=== PATIENT | female | born 1950 | race Two or more races ===

== ENCOUNTER 2025-08-20 18:59 | Emergency (ER) | payer MEDICARE, SELFPAY ==
[2025-08-20 19:03] VITALS: PULSE 77
--- NOTE | 2025-08-20 19:03 | XR_ITS ---
Examination: CT brain head without contrast. 2-D sagittal coronal reconstructions Date and time of exam: August 20, 2025, 1915 hours INDICATIONS: Stroke alert, onset left-sided head pain today, comparison September 04, 2023 CTDI: vol (mGy): 48.4 DLP: (mGycm): 998 Technique: Multiple CT axial sections of the brain have been obtained, 5 mm slice thickness. Contrast has not been administered. 2-D sagittal, coronal reconstructions have been obtained Low dose protocols were performed. One or more of the following dose reduction techniques were used; automated exposure control, adjustment of the mA and/or KV according to patient size, use of iterative reconstruction technique. Findings: 24 mm acute hemorrhage in the left occipital lobe with surrounding edema The ventricles are not enlarged Fourth ventricle is midline Cranial vault intact No midline shift of the ventricles IMPRESSION: 24 mm acute hemorrhage left occipital lobe
--- NOTE | 2025-08-20 19:03 | XR_ITS ---
Examination: CTA carotids with intravenous contrast CTA brain, head with intravenous contrast. 2-D sagittal, coronal reconstructions. 3-D reconstructions. Exam date and time: August 20, 2025, 192 hours INDICATIONS: Stroke alert, onset left-sided body weakness head pain today CTDI: vol (mGy) 14.5 DLP: (mGycm) 399 Technique: Multiple CTA axial brain, head carotid images post intravenous contrast injection 75 cc, [id number]. 2-D sagittal, coronal reconstructions. 3-D reconstructions, 3-D post processing including vascular maximum intensity projection images. Low dose protocols were performed. One or more of the following dose reduction techniques were used; automated exposure control, adjustment of the mA and/or KV according to patient size, use of iterative reconstruction technique. Findings: Multiple thyroid nodules 50% stenosis proximal left common carotid artery 60% stenosis right carotid bifurcation origin right internal carotid artery 60% stenosis left carotid bifurcation origin left internal carotid artery Dominant right vertebral artery in the neck Heavy calcification origin left vertebral artery in the neck Intracranial vertebral arteries basilar artery posterior cerebral branches fill with no large vessel occlusions Moderate calcification juxtasellar internal carotid arteries No large vessel occlusions middle cerebral or anterior cerebral arteries Please see the CT brain report IMPRESSION: 50% stenosis proximal left common carotid artery 60% stenosis right carotid bifurcation origin right internal carotid artery 60% stenosis left carotid bifurcation origin left internal carotid artery Heavy calcification origin left vertebral artery, consider carotid vertebral Doppler sonography follow-up to assess for retrograde flow in the left vertebral artery No cerebral large vessel arterial occlusions
--- NOTE | 2025-08-20 19:03 | EKG_ITS ---
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
--- NOTE | 2025-08-20 19:03 | XR_ITS ---
EXAMINATION: AP chest single view TECHNIQUE: Sitting portable AP chest single view Date and time: August 20, 2025, 193 hours COMPARISON: September 04, 2023 INDICATIONS: Stroke alert FINDINGS: Normal heart size No aspiration pneumonia. Prominent osteopenia IMPRESSION: No aspiration pneumonia
--- NOTE | 2025-08-20 19:06 | PD.EDNEURO ---
Neuro Symptoms Deficit-RME/HPI General Chief Complaint: Neuro Symptoms/Deficit Stated Complaint: STROKE Time Seen by Provider: 08/20/25 19:02 Source: patient and EMS Arrival date/time: 08/20/25 18:59 Mode of arrival: EMS RME / HPI RME / HPI Narrative: DR. DC MAIN ED EVALUATION: 75 y/o female with Hx of HTN, HLD, and Type II DM BIBA from home presents to ED c/o severe left-sided globular RODRIGUEZ, weakness and feeling mildly unsteady, similar to that of a prior hemorrhagic stroke approximately 3 months ago. LKWT was approximately 9 PM last night. Family noticed an unsteady gait and patient c/o mild dizziness. Also reports belly pain radiating to the back. Denies any allergies to medications. No other complaints. In speaking to the patient's granddaughter at bedside, states that the patient had a head bleed in March of this year, was taken to [facility] at the time. Patient does not take any aspirin, or any blood thinners. Has a history of hypertension diabetes hyperlipidemia and anemia. No drugs alcohol or smoking. She quit smoking many months ago. Onset (ago): hour(s) Related Data Home Medications ?Medication ?Instructions ?Recorded ?Confirmed ferrous sulfate 325 mg (65 mg 325 mg PO QDAY 08/11/22 08/11/22 iron) tablet lisinopril 10 mg tablet 10 mg PO QDAY 08/11/22 08/11/22 metformin 1,000 mg tablet 1,000 mg PO BIDWMEAL 08/11/22 08/11/22 oxybutynin chloride 5 mg tablet 5 mg PO BID 08/11/22 08/11/22 pioglitazone 15 mg tablet 15 mg PO QDAY 08/11/22 08/11/22 pravastatin 40 mg tablet 40 mg PO QDAY 08/11/22 08/11/22 tramadol 50 mg tablet 50 mg PO QDAY PRN Pain 08/11/22 08/11/22 Allergies Allergy/AdvReac Type Severity Reaction Status Date / Time cat dander Allergy Verified 08/13/22 16:31 Review of Systems Review of Systems Systems Reviewed: All systems reviewed, normal except as documented Past Medical History Past Medical History CARDIAC: Positive Hypertension MUSCULOSKELETAL: Positive Musculoskeletal Disorders (left knee replacement,) ENDOCRINE: Positive Diabetes Mellitus Type 2 OTHER HISTORY: Positive Blood Transfusions Family History FAMILY HISTORY: Positive Family Gastrointestinal Problems (Gastritis) ED Exam Narrative Physical exam: GEN. APPEARANCE: The patient is alert awake oriented uncomfortable, Patient has good eye contact. Patient is cooperative. VITALS: All vitals were reviewed and the pulse ox is 99% on room air which is normal according to my interpretation. HEENT: Normocephalic, atraumatic. Pupils are equal and reactive. Oral mucosa is moist. Patent Nares NECK: Supple, nontender, no thyromegaly, no meningismus, no JVD CHEST: Symmetrical, atraumatic, and with equal expansion , Nontender on palpation no deformity and no crepitus. CARDIOVASCULAR: Heart regular rhythm no arrhythmias appreciated LUNGS: Clear to auscultation bilaterally with symmetrical chest rise. No laboring tachypnea or wheezing. No intercostal subcostal retraction. No rales and no rhonchi. ABDOMEN: Soft, flat, tender to palpation of epigastrium, no guarding or rebound tenderness. There are no abnormal masses palpated. Active and normal bowel sounds. EXTREMITIES: Nontender. No edema. No cyanosis. Patient is able to move all 4 extremities well, with full ROM and good CSM. SKIN: Warm and dry, no jaundice or rashes noted. NEURO: Patient is strong in all 4 extremities, cranial nerves grossly intact, sensation intact, unsteady gait PSYCHIATRIC: Patient is in normal mood and affect. Course Quality Measures Suspected type of Stroke: Hemmorrhagic Last known well (date): 08/19/25 Last known well (time): 21:00 Tenecteplase given: within 60 min of arrival stroke Orders Category Date Time Status Bedside Blood Glucose NOW Care 08/20/25 19:[address] Screening NOW Care 08/20/25 19:04 Completed Coach Mechanic NOW Care 08/20/25 19:03 Completed Continuous Pulse Oximetry NOW Care 08/20/25 19:03 Completed EKG (ED ONLY) *Do not use* NOW Care 08/20/25 19:03 Completed Chandler [Urinary Catheter] QS Care 08/20/25 20:37 Completed In and Out Catheter NEEDED Care 08/20/25 19:03 Completed Insert IV NOW Care 08/20/25 19:03 Completed Miscellaneous Nursing Order NOW Care 08/20/25 19:27 Completed Miscellaneous Nursing Order NOW Care 08/20/25 19:30 Completed NIH Stroke Scale now Care 08/20/25 19:03 Completed NPO NOW Care 08/20/25 19:03 Completed Neuro Check Q1H Care 08/20/25 19:30 Completed Neuro Check Q1HR Care 08/20/25 19:03 Completed Nurse Swallow Screen x1 Care 08/20/25 19:03 Completed Consult to Neurology / Tele-Neurology Routine Cons 08/20/25 19:03 Active Referral - Agricultural Scientist Stat Cons 08/20/25 19:[address] angio chest abdomen pelvis Stat Exams 08/20/25 19:[address] angio stroke protocol Stat Exams 08/20/25 19:[address] stroke protocol Stat Exams 08/20/25 19:03 Completed EKG (ED Only) Stat Exams 08/20/25 19:03 Draft XR chest 1V portable Stat Exams 08/20/25 19:03 Completed CBC Stat Lab 08/20/25 19:09 Completed Comprehensive Metabolic Panel Stat Lab 08/20/25 19:09 Completed Drug Screen,Urine Stat Lab 08/20/25 20:10 Completed Magnesium Stat Lab 08/20/25 19:09 Completed Partial Thromboplastin Time Stat Lab 08/20/25 19:09 Completed Prothrombin Time with INR Stat Lab 08/20/25 19:09 Completed Troponin I Stat Lab 08/20/25 19:09 Completed Urinalysis, C/S if Indicated Stat Lab 08/20/25 20:10 Completed Labetalol IV [Trandate IV] Med 08/20/25 19:02 Discontinued 10 mg IVP Q15M PRN Morphine* Inj Med 08/20/25 20:57 Discontinued 2 mg IVP STAT STA Morphine* Inj Med 08/20/25 19:40 Discontinued 2 mg IVP X1 ONE Nicardipine/Ns 20Mg Ivpb [Cardene Ivpb] Med 08/20/25 19:29 Discontinued 20 mg in 200 ml IV 5 mg/hr Ondansetron Inj [Zofran Inj] Med 08/20/25 19:02 Discontinued 4 mg IVP Q4HR PRN Ondansetron Inj [Zofran Inj] Med 08/20/25 20:57 Discontinued 4 mg IVP X1 ONE Tranexamic Acid 1,000 mg Ivpb [Tranexamic Acid Ivpb] Med 08/20/25 19:27 Discontinued 1,000 mg in 100 ml IV PRNMRX1 hydrALAZINE INJ [Apresoline Inj] Med 08/20/25 20:57 Discontinued 10 mg IVP X1 ONE Oxygen Delivery NOW RT 08/20/25 19:03 Completed Vital Signs Vital signs: Vital Signs Pulse Rate 77 08/20/25 19:03 Neuro Symptoms / Deficit MDM Narrative MDM Narrative:: Scribe Attestation: ISarah, am scribing for and in the presence of Dr. Dc. Provider Notation: Although this document has been carefully reviewed, there may still be some phonetic and other typographical errors. These errors are purely grammatical due to imperfections in the software program and should not be construed in any way to compromise the substance of the patient's medical care during this visit. Patient is a 75-year-old female with medical history notable for hypertension, hyperlipidemia, diabetes, anemia to the emergency department with a severe headache and unsteady gait since last night. Vital signs and exam as listed. Patient was activated as a stroke alert, also ordered CT angio of the chest abdomen pelvis given patient with chest pain that radiated to her back as well. Received a call from radiologist stating that patient has a 24 mm acute left occipital hemorrhage. I ordered TXA, head of bed about 45 degrees, also ordered nicardipine drip, with systolic blood pressure goal of 140. Patient without any aspirin or any blood thinners. Discussed case with [facility] neurosurgeon Dr. Rice, reviewed images, recommends we transfer the patient to a facility that has angiogram capabilities. Discussed case with [facility], accepts patient for admission, agrees with management. Updated patient and her granddaughter at bedside. In agreement with treatment plan and transfer. Patient data External records reviewed:: [facility] previous records (Reviewed pro ED records from 09/04/23. Patient was seen for Vasovagal syncope.) and EMS form Clinical information provided by:: patient and EMS Social determinants that could affect healthcare access:: housing Patient has the following chronic illnesses:: Hypertension, Diabetes Mellitus Type 2, HLD How is presenting disease/condition affected by chronic disease/condition?: exacerbated by Evaluation data The following diagnostics were reviewed and interpreted by me:: lab results, radiology exam(s) and EKG tracing(s) (EKG typicals: EKG done at 19:49, 67 bpm, normal intervals, non-specific T-wave changes, not a cardiac alert. - Interpreted by Dr. Tavia Dc.) Lab and/or radiology exams considered but not ordered:: None Interpretation Summary: RADIOLOGY Chest X-Ray: Pending official radiology report. Head/Brain CT: Findings: 24 mm acute hemorrhage in the left occipital lobe with surrounding edema The ventricles are not enlarged Fourth ventricle is midline Cranial vault intact No midline shift of the ventricles IMPRESSION: 24 mm acute hemorrhage left occipital lobe Chest/Abdomen/Pelvis CTA: Pending official radiology report. Head/Neck CTA: Pending official radiology report. Medications / Prescriptions Medications or Prescriptions considered but not ordered:: None Medication administrations:: Medication Administration History Discontinued Medications Hydralazine HCl (Hydralazine Inj 20 Mg/Ml Vial) 10 mg IVP X1 ONE Stop: 08/20/25 20:58 Last Admin: 08/20/25 21:01 Dose: 10 mg Documented By: CINDY Tranexamic Acid (Tranexamic Acid Ivpb) 1,000 mg in 100 mls @ 200 mls/hr IV PRNMRX1 PRN PRN Reason: BLEEDING Last Infusion: 08/20/25 20:18 Dose: Infused Documented By: Admin: 08/20/25 19:40 Dose: 200 mls/hr Documented By: CINDY Nicardipine/Sodium Chloride (Cardene Ivpb) 20 mg in 200 mls @ 50 mls/hr IV .Q4H PRN; Protocol PRN Reason: PER PROTOCOL Stop: 09/19/25 19:28 Last Admin: 08/20/25 20:55 Dose: 15 mg/hr, 150 mls/hr Documented By: [email or web address] Titration: 08/20/25 20:54 Dose: Infused Documented By: [email or web address] Titration: 08/20/25 20:50 Dose: 15 mg/hr, 150 mls/hr Documented By: [email or web address] Titration: 08/20/25 20:45 Dose: 15 mg/hr, 150 mls/hr Documented By: [email or web address] Titration: 08/20/25 20:40 Dose: 15 mg/hr, 150 mls/hr Documented By: [email or web address] Titration: 08/20/25 20:35 Dose: 15 mg/hr, 150 mls/hr Documented By: [email or web address] Titration: 08/20/25 20:30 Dose: 15 mg/hr, 150 mls/hr Documented By: [email or web address] Titration: 08/20/25 20:25 Dose: 15 mg/hr, 150 mls/hr Documented By: [email or web address] Titration: 08/20/25 20:20 Dose: 15 mg/hr, 150 mls/hr Documented By: [email or web address] Titration: 08/20/25 20:15 Dose: 15 mg/hr, 150 mls/hr Documented By: [email or web address] Titration: 08/20/25 20:10 Dose: 12.5 mg/hr, 125 mls/hr Documented By: [email or web address] Titration: 08/20/25 20:05 Dose: 10 mg/hr, 100 mls/hr Documented By: [email or web address] Titration: 08/20/25 20:00 Dose: 7.5 mg/hr, 75 mls/hr Documented By: [email or web address] Admin: 08/20/25 19:55 Dose: 5 mg/hr, 50 mls/hr Documented By: [email or web address] Labetalol HCl (Labetalol Inj 5 Mg/Ml Vial 20 Ml) 10 mg IVP Q15M PRN PRN Reason: HYPER Morphine Sulfate (Morphine Sulf Inj 4 Mg/Ml Vial) 2 mg IVP X1 ONE Stop: 08/20/25 19:41 Last Admin: 08/20/25 20:12 Dose: 2 mg Documented By: [email or web address] Morphine Sulfate (Morphine Sulf Inj 4 Mg/Ml Vial) 2 mg IVP STAT STA Stop: 08/20/25 20:58 Last Admin: 08/20/25 21:03 Dose: 2 mg Documented By: CINDY Ondansetron HCl (Ondansetron Inj 2 Mg/Ml Inj 2 Ml) 4 mg IVP Q4HR PRN PRN Reason: NAUSEA OR VOMITING Stop: 09/19/25 19:01 Ondansetron HCl (Ondansetron Inj 2 Mg/Ml Inj 2 Ml) 4 mg IVP X1 ONE; Protocol Stop: 08/20/25 20:58 Last Admin: 08/20/25 21:03 Dose: 4 mg Documented By: CINDY See above if any Consultations Consultation(s) initiated? (list below): Yes Consultation #1 (Physician, Specialty, Details): Dr. Rcie at [facility] made aware of the patient?s HPI, PMHx, lab and/or radiology results. Discussed treatment plan. Will return call for possible transfer. Time: 19:33 Consultation #2 (Physician, Specialty, Details): After review of head/brain CT, Dr. Rice declines patient for transfer, recommends angiogram or transfer to a neuro-interventional facility. Time: 19:44 Consultation #3 (Physician, Specialty, Details): [facility] made aware of the patient?s HPI, PMHx, lab and/or radiology results. Discussed treatment plan. Will accept patient for transfer, ED to ED. Time: 19:59 Diagnosis Neuro Differential Diagnosis: delirium, subarachnoid hemorrhage, peripheral neuropathy, cerebrovascular accident and transient cerebral ischemia Most likely diagnosis given after review of the tests above:: Intracranial hemorrhage, Anemia Admission Indicated Admission indicated?: not indicated Explain why admission is indicated or not indicated:: Patient pending transfer to tertiary facility with neurosurgical capabilities. Admission Request Was there a request for admission?: No Disposition Plan Disposition Plan: Transfer Critical Care Time Critical Care Time Critical Care Time: Yes Total Critical Care Time (min.): 60 Attestation: The high probability of sudden, clinically significant deterioration in the patient?s condition required the highest level of my preparedness to intervene urgently. The services I provided to this patient were to treat and/or prevent clinically significant deterioration. Services included the following: chart data review, reviewing nursing notes and/or old charts, documentation time, health and wellness sales consultant collaboration regarding findings and treatment options, medication orders and management, direct patient care, vital sign assessments and ordering, interpreting and reviewing diagnostic studies and lab tests. Aggregate critical care time includes only time during which I was engaged in work directly related to the patient?s care, as described above, whether at bedside or elsewhere in the Emergency Department. It did not include time spent performing other reported procedures or the services of residents, students, nurses or physician assistants. Discharge Plan Plan Patient Disposition: [facility] Facility Pt Being Transferred to: [facility] Prescriptions/Referrals Prescriptions/Med Rec: No Action pioglitazone 15 mg Tablet 15 mg PO QDAY pravastatin 40 mg Tablet 40 mg PO QDAY tramadol 50 mg Tablet 50 mg PO QDAY PRN (Reason: Pain) ferrous sulfate 325 mg (65 mg iron) Tablet 325 mg PO QDAY metformin 1,000 mg Tablet 1,000 mg PO BIDWMEAL lisinopril 10 mg Tablet 10 mg PO QDAY oxybutynin chloride 5 mg Tablet 5 mg PO BID Problem List Clinical Impression: Anemia, Intracranial hemorrhage Patient/Caregiver Discharge Instructions Print Language: Latvian Stand Alone Forms: Gwen Award Info., Patient Portal Info Letter
[2025-08-20 19:20] VITALS: BMI 23.7
[2025-08-20 19:27] LABS: Basophils # (Auto) 0.0 Thou/mm3 (0.0-0.2); Basophils % (Auto) 1 % (0-2.5); Eosinophils # (Auto) 0.1 Thou/mm3 (0.0-0.5); Eosinophils % (Auto) 1 % (0-10); Hematocrit 28.7 % (36.0-46.0); Hemoglobin 9.6 g/dL (12.0-16.0); Immature Granulocytes Auto 0.01 Thou/mm3 (0.00-0.00); Lymphocytes # (Auto) 2.2 Thou/mm3 (1.0-4.8); Lymphocytes % (Auto) 32 % (10-50); Mean Corpuscular HGB Conc 33.4 g/dl (31.0-37.0); Mean Corpuscular Hemoglobin 29.0 pg (25.0-35.0); Mean Corpuscular Volume 87 fL (80-100); Monocytes # (Auto) 0.5 Thou/mm3 (0.0-0.8); Monocytes % (Auto) 7 % (0-12); Neutrophils # (Auto) 4.1 Thou/mm3 (1.8-7.7); Neutrophils % (Auto) 59 % (37-80); Nucleated Red Blood Cell # 0.00 Thou/mm3 (0.00-0.00); Nucleated Red Blood Cell % 0 /100 WBC (0); Platelet Count 371 Thou/mm3 (140-440); RDW Standard Deviation 45.5 fL (36.4-46.3); Red Blood Count 3.31 Miln/mm3 (4.00-5.20); White Blood Count 7.0 Thou/mm3 (3.6-11.0)
--- NOTE | 2025-08-20 19:38 | PC.NURSE ---
STAT transfer to [facility] REVIEWING by MD Rice - will try reach if Pt s accepted Clinicals sent
[2025-08-20] MEDS: TRANEXAMIC ACID 1,000 MG IVPB 1,000 MG/100 ML BAG 200 MG IV (19:40)
--- NOTE | 2025-08-20 19:40 | PC.NURSE ---
pt at bedside talking to tele nuero specialist raul Hung MD on tele nuero cart
[2025-08-20 19:44] VITALS: BP 201/59; PULSE 69; RESP 18; TEMP 37.1; O2SAT 99
[2025-08-20 19:48] LABS: Alanine Aminotransferase 9 U/L (10-49); Albumin, Serum 4.8 gm/dL (3.4-4.8); Albumin/Globulin Ratio 2.0 (1.2-2.2); Alkaline Phosphatase 82 U/L (46-116); Anion Gap 14 (7-16); Aspartate Amino Transferase 15 U/L (0-34); BUN/Creatinine Ratio 10 Ratio (12-20); Bilirubin,Total 0.4 mg/dL (0.3-1.2); Blood Urea Nitrogen 11 mg/dL (9-23); Calcium 9.5 mg/dL (8.3-10.6); Calcium (Corrected) 9.5 mg/dL (8.5-10.1); Carbon Dioxide 21.4 mMol/L (20.0-31.0); Chloride 94 mMol/L (98-107); Creatinine (Component) 1.1 mg/dL (0.6-1.3); Estimated Creatinine Clearance 42.0 mL/min (>60); Globulin 2.4 gm/dL (2.3-3.5); Glucose 126 mg/dL (74-106); INR 0.9 (0.9-1.3); Magnesium 1.9 mg/dL (1.6-2.6); Osmolality,Calculated 260 (275-295); Partial Thromboplastin Time 27.6 Seconds (22.0-36.0); Potassium 4.2 mMol/L (3.4-5.1); Prothrombin Time 9.8 Seconds (9.0-12.2); Sodium 129 mMol/L (136-145); Total Protein 7.2 gm/dL (5.7-8.2); Troponin I < 0.020 ng/mL (0.0-0.045); eGFR 53 See Note
[2025-08-20 19:55] VITALS: BP 222/79; PULSE 69
[2025-08-20] MEDS: NICARDIPINE/NS 20MG IVPB 20 MG/200 ML BAG 50 MG IV (19:55)
--- NOTE | 2025-08-20 20:01 | PC.NURSE ---
[facility] declined due to pt needing angiogram, will fax over clinicals to [facility]. MD Pollard o the phone with [facility] for EMTALA questions images pushed over, labs faxed as well as clinicals
--- NOTE | 2025-08-20 20:09 | PC.NURSE ---
2008, ACCEPTED TO [facility] BY , ED TO ED, REPORT [id number], SPOKE TO ANTON
[2025-08-20] MEDS: MORPHINE SULF INJ 4 MG/ML VIAL 2 MG IVP ×2 (20:12→21:03)
--- NOTE | 2025-08-20 20:25 | PD.TNEURO ---
Tele Neuro Consultation Consultation Date 08/20/25 Most Recent Vital Signs Last Vital Signs Temp 98.7 F 08/20/25 19:44 Pulse 69 08/20/25 19:55 Resp 18 08/20/25 19:44 BP 222/79 H 08/20/25 19:55 Pulse Ox 99 08/20/25 19:44 O2 Del Method Room Air 08/20/25 19:44 Laboratory-Coagulation Panel PT 9.8 Seconds (9.0-12.2) 08/20/25 19:09 INR 0.9 (0.9-1.3) 08/20/25 19:09 APTT 27.6 Seconds (22.0-36.0) 08/20/25 19:09 Consultation Narrative [facility] Tele[facility]rology [facility] Patient Name:???Makenna Ho Date of :???1950 Identification Number:??? Date of Service:???08/20/2025 19:31:35 Diagnosis:?I61.1 - Intracerebral hemorrhage in hemisphere, cortical Impression: Ms Bynum is a 75 year old woman with a new left occipital hemorrhagic stroke causing right visual field loss and it is likely in a different location from previous given the location of prior deficits are left hemiparesis/sensory loss. She is a former smoker so neoplasm etiology is possible, the cortical location raises concerns for amyloid angiopathy, vascular malformation, mycotic etiology. I recommend BP goal <140/90 with cardene, neurosurgical evaluation for etiology/monitoring, MRI brain with and without contrast. Recommendation: Diagnostic Studies: ?Repeat CT head in first 8-12hrs Laboratory Studies:? INR/PT ? aPTT? CBC Medications:? Hold?antiplatelet?therapy/NSAIDS/Anticoagulation Nursing Recommendations: ? Telemetry, IV Fluids?Avoid dextrose containing fluids, Maintain euglycemia ? Head of bed 30 degrees ? Neuro checks q1-2?hrs?during ICU stay ? keep BP less than 140/90's with goal of 130/80s Consultations: ? Need Neurosurgery consultation?STAT DVT Prophylaxis: ? SCDs Disposition: ? Neurology will Follow Metrics: Last Known Well: Unknown Dispatch Time: 08/20/2025 19:31:35 Arrival Time: 08/20/2025 19:00:00 Initial Response Time: 08/20/2025 19:44:08Symptoms: confused with bad headache and weakness worse than baseline. Initial patient interaction: 08/20/2025 19:51:00 NIHSS Assessment Completed: 08/20/2025 19:56:20Patient is not a candidate for Thrombolytic. Thrombolytic Medical Decision: 08/20/2025 19:56:21Patient was not deemed candidate for Thrombolytic because of following reasons: Current intracranial hemorrhage . CT Head: I personally reviewed all the CT images that were available to me and it showed: left occipital hemorrhage Primary Provider Notified of Diagnostic Impression and Management Plan on: 08/20/2025 20:06:45 History of Present Illness:Patient is a 75 year old Female. Patient was brought by EMS for symptoms of confused with bad headache and weakness worse than baseline. 75 year old woman awoke today confused and not acting her baseline per family so she was hollis to the ED by EMS since her headache was severe and concerning for another stroke. She had a hemorrhagic stroke in March and was seen at another hospital. She is not taking anti thrombotic medications. No trauma history. She complains that her left side feels weaker than baseline. Past Medical History: ?Hypertension ?Diabetes Mellitus ?Hyperlipidemia ?Stroke Medications: No Anticoagulant use? No Antiplatelet use Reviewed EMR for current medications Allergies:? Reviewed Social History: Smoking: Former Drug Use: No Family History: There is no family history of premature cerebrovascular disease pertinent to this consultation ROS : 14 Points Review of Systems was performed and was negative except mentioned in HPI. Past Surgical History: There Is No Surgical History Contributory To Today?s Visit Examination: BP(201/59),?Pulse(70),?Blood Glucose(150) 1A: Level of Consciousness - Alert; keenly responsive?+ 0 1B: Ask Month and Age - Could Not Answer Either Question Correctly?+ 2 1C: Blink Eyes & Squeeze Hands - Performs Both Tasks?+ 0 2: Test Horizontal Extraocular Movements - Normal?+ 0 3: Test Visual [place] - Complete Hemianopia?+ 2 4: Test Facial Palsy (Use Grimace if Obtunded) - Minor paralysis (flat nasolabial fold, smile asymmetry)?+ 1 5A: Test Left Arm Motor Drift - Drift, hits bed?+ 2 5B: Test Right Arm Motor Drift - No Drift for 10 Seconds?+ 0 6A: Test Left Leg Motor Drift - No Drift for 5 Seconds?+ 0 6B: Test Right Leg Motor Drift - No Drift for 5 Seconds?+ 0 7: Test Limb Ataxia (FNF/Heel-Gregg) - No Ataxia?+ 0 8: Test Sensation - Mild-Moderate Loss: Less Sharp/More Dull?+ 1 9: Test Language/Aphasia - Normal; No aphasia?+ 0 10: Test Dysarthria - Normal?+ 0 11: Test Extinction/Inattention - Visual/tactile/auditory/spatial/personal inattention?+ 1 NIHSS Score:?9 ICH Score: 0 Martin Coma Score:13-15 (0) Age >= 80:No (0) ICH volume >= 30mL:No (0) Intraventricular hemorrhage:No (0) Infratentorial origin of hemorrhage:No (0) Pre-Morbid Modified [place] Scale: 0 Points = No symptoms at all This consult was conducted in real time using interactive audio and video technology. Patient was informed of the technology being used for this visit and agreed to proceed. Patient located in hospital and provider located at home/office setting. Due to the immediate potential for life-threatening deterioration due to underlying acute neurologic illness, I spent 35 minutes providing critical care. This time includes time for face to face visit via telemedicine, review of medical records, imaging studies and discussion of findings with providers, the patient and/or family. Dr Ankit Eric [facility] For Inpatient follow-up with [facility] physician please call [facility] at . As we are not an outpatient service for any post hospital discharge needs please contact the hospital for assistance. If you have any questions for the [facility] physicians or need to reconsult for clinical or diagnostic changes please contact us via [facility] at . Signature :?Ankit Eric
[2025-08-20 20:29] LABS: Collection Type, Urine Catheter; Squamous Epithelial Cell,Urine 0 /hpf (0-5)
[2025-08-20 20:39] LABS: Bilirubin,Urine Negative (Negative); Blood,Urine Negative (Negative); Clarity,Urine Clear (Clear/Hazy); Color,Urine Colorless (Lt Yel-Yel); Culture Indicated,Urine Not Indicated; Glucose, Urine Negative (Negative); Ketones,Urine Negative (Negative); Leukocyte Esterase,Urine Negative (Negative); Nitrite,Urine Negative (Negative); PH,Urine 6.5 (5.0-7.0); Protein,Urine Trace (Neg - Trace); RBC,Urine < 1 /hpf (0-3); Specific Gravity,Urine 1.007 (1.001-1.035); Urobilinogen,Urine Negative mg/dL (0.0-1.0); WBC,Urine < 1 /hpf (0-5)
[2025-08-20 20:44] LABS: Amphetamine/Methamp Scrn,U Negative (Negative); Barbiturate Screen,Urine Negative (Negative); Benzodiazepines Screen,Urine Negative (Negative); Benzoylecgonine Screen, Ur Negative (Negative); Fentanyl Screen,Urine Negative (Negative); Opiate Screen,Urine Negative (Negative); THC Screen,Urine Negative (Negative)
[2025-08-20 20:55] VITALS: BP 160/70; PULSE 75
[2025-08-20] MEDS: NICARDIPINE/NS 20MG IVPB 20 MG/200 ML BAG 150 MG IV (20:55)
[2025-08-20 21:01] VITALS: BP 168/60; PULSE 85
[2025-08-20] MEDS: hydrALAZINE INJ 20 MG/ML VIAL 10 MG IVP (21:01)
[2025-08-20] MEDS: ONDANSETRON INJ 2 MG/ML INJ 2 ML 4 MG IVP (21:03)
--- NOTE | 2025-08-20 21:06 | PC.NURSE ---
NICARDIPINE BAG GIVEN TO AZALIA CASTELLANOS FROM REACH TO TAKE ON THE RIDE FOR PATIENT AFTER FIRST BAG RUNS OUT. FABY DC MD OKAYED TO GIVE AN EXTRA DOSE OF MORPHINE ALONG WITH ZOFRAN AND 1OMG OF HYDRALAZINE.
== END 2025-08-20 21:16 | disposition short-term general hospital (02) ==
PROVIDERS: Emergency Provider Emergency Medicine; PCP Family Medicine
DX: I61.9 Nontraumatic intracerebral hemorrhage, unspecified (principal); D64.9 Anemia, unspecified; E11.9 Type 2 diabetes mellitus without complications; E78.5 Hyperlipidemia, unspecified; I10 Essential (primary) hypertension; Z87.891 Personal history of nicotine dependence
CPT/HCPCS: 36415; 70450; 70496; 70498; 71045; 80053; 80307; 81001; 83735; 84484; 85025; 85610; 85730; 93005; 96365; 96375; 96376; 99284; A4649; J0360; J2270; J2404; J2405; J3490; Q9967

== ENCOUNTER 2025-09-26 08:41 | Emergency (ER) | payer MEDICARE, SELFPAY ==
[2025-09-26] VITALS (9 sets, daily range): BP systolic 117–169; BP diastolic 61–88; PULSE 70–79; RESP 14–90; TEMP 36.9–38.6; O2SAT 90–100; BMI 23.6
--- NOTE | 2025-09-26 08:51 | PD.EDAMS ---
Altered Mental Status RME/HPI General Chief Complaint: Altered Mental Status Stated Complaint: AMS Time Seen by Provider: 09/26/25 08:51 Arrival date/time: 09/26/25 08:41 Limitations: no limitations RME / HPI RME / HPI narrative: 75 year old female with history of CVA, hypertension, diabetes, hyperlipidemia presents to the ED BIBA from home for evaluation of altered mental status today. Per medics, granddaughter reported the patient had appeared more confused this morning though at baseline is lethargic and globally weak. G-FAST 0 on scene. Per medics, patient was noted to be clammy and warm to touch. In the ED, patient complains of feeling unwell. Reports headache, left-sided chest pain, right upper abdominal pain, and diarrhea. States the abdominal pain began several days ago with no known modifying factors at home. Patient denies any unilateral weakness, loss of sensation/movement, facial numbness, falls or trauma. Denies fevers or urinary symptoms. In the ED, BG 182. Related Data Home Medications ?Medication ?Instructions ?Recorded ?Confirmed ferrous sulfate 325 mg (65 mg 325 mg PO QDAY 08/11/22 09/26/25 iron) tablet Held on 09/26/25. Instructions: Doctor's Order lisinopril 10 mg tablet 10 mg PO QDAY 08/11/22 09/26/25 metformin 1,000 mg tablet 500 mg PO BID 08/11/22 09/26/25 pioglitazone 15 mg tablet 15 mg PO QDAY 08/11/22 09/26/25 Held on 09/26/25. Instructions: Doctor's Order pravastatin 40 mg tablet 40 mg PO QDAY 08/11/22 09/26/25 Held on 09/26/25. Instructions: Doctor's Order atorvastatin 40 mg tablet (Lipitor) 40 mg PO QPM 09/26/25 09/26/25 pantoprazole 40 mg tablet,delayed 40 mg PO QAM 09/26/25 09/26/25 release Allergies Allergy/AdvReac Type Severity Reaction Status Date / Time cat dander Allergy Verified 09/26/25 08:51 Review of Systems Review of Systems Systems Reviewed: All systems reviewed, normal except as documented Past Medical History Past Medical History NEUROLOGIC: Positive Cerebrovascular Accident CARDIAC: Positive Hypercholesterolemia and Hypertension GASTROINTESTINAL: Positive Gastrointestinal Disorders REPRODUCTIVE: Positive Previous Pregnancies MUSCULOSKELETAL: Positive Musculoskeletal Disorders ENDOCRINE: Positive Diabetes Mellitus Type 2 OTHER HISTORY: Positive Blood Transfusions Family History FAMILY HISTORY: Positive Family Gastrointestinal Problems Social History SMOKING STATUS: Never smoker ED Exam General Limitations: Present no limitations General appearance: Present alert and other (appears globally weak ) Head Head exam: Present atraumatic Eye Eye exam: Present normal appearance, PERRL and EOMI ENT ENT exam: Present normal exam, normal oropharynx and mucous membranes moist Neck Neck exam: Present normal inspection, full ROM and trachea midline Chest Chest inspection: Present normal inspection and symmetric chest wall rise Respiratory Respiratory exam: Present normal lung sounds bilaterally Cardiovascular Cardiovascular exam: Present regular rate, normal rhythm and normal heart sounds Abdominal Exam Abdominal exam: Present soft, tenderness (mild and generalized) and normal bowel sounds Extremities Exam Extremities exam: Present normal inspection and full ROM Back Exam Back exam: Present normal inspection and full ROM Neurological Exam Neurological exam: Present alert, oriented X3, CN II-XII intact and other (appears globally weak, sensation is intact, no cranial nerve abnormalities, able to move all extremities well ) Psychiatric Psychiatric exam: Present normal affect and normal mood Skin Skin exam: Present warm, dry, intact and normal color Course Quality Measures none Orders Category Date Time Status Bedside Blood Glucose NOW Care 09/26/25 09:00 Completed Assembler Tractor Q4H START 00 Care 09/26/25 09:00 Active EKG (ED ONLY) *Do not use* NOW Care 09/26/25 08:57 Completed In and Out Catheter X1 Care 09/26/25 08:57 Completed Insert IV NOW Care 09/26/25 09:00 Active Strict Intake and Output Routine Care 09/26/25 09:00 Ordered EKG (ED Only) Stat Exams 09/26/25 08:56 Draft US abdomen limited Stat Exams 09/26/25 10:17 Completed XR chest 1V SEPSIS PROTOCOL Stat Exams 09/26/25 09:00 Completed Blood Culture (Lab) Stat Lab 09/26/25 09:10 Received CBC Stat Lab 09/26/25 09:10 Completed CMP [Comprehensive Metabolic Panel] Stat Lab 09/26/25 09:10 Completed COVID-19 Antigen (In-House) Stat Lab 09/26/25 10:15 Completed Lactate (Lactic Acid) Stat Lab 09/26/25 09:10 Completed Lipase Stat Lab 09/26/25 09:10 Completed Procalcitonin Stat Lab 09/26/25 09:10 Completed Prothrombin Time with INR Stat Lab 09/26/25 09:10 Completed Troponin I Stat Lab 09/26/25 09:10 Completed UA, C/S IF [Urinalysis, C/S if Indicated] Stat Lab 09/26/25 09:20 Completed Urine Culture Stat Lab 09/26/25 09:20 Received Sodium Chloride 0.9% 1000 ml [Ns] 1,000 ml Med 09/26/25 09:17 Discontinued IV 999 mls/hr cefTRIAXone/D5w 1gm IV premix [Rocephin/D5w 1gm IV Med 09/26/25 10:17 Discontinued premix] 1 gm in 50 ml IV STAT Oxygen Delivery NOW RT 09/26/25 09:00 Completed Vital Signs Vital signs: Vital Signs Temperature 101.4 F H 09/26/25 08:53 Pulse Rate 74 09/26/25 08:53 Respiratory Rate 19 09/26/25 08:53 Blood Pressure 146/88 H 09/26/25 08:53 Pulse Oximetry (%) 90 L 09/26/25 08:53 Oxygen Delivery Method Room Air 09/26/25 08:53 Pulse ox is 90% on room air which is low. Altered Mental Status MDM Narrative MDM Narrative:: Devi Valadez am scribing for and in the presence of Dr. Pollard. Patient is a 75-year-old female seen emerged primary concerns for fever, and gross weakness. Vital signs and exam as listed. Broad differential considered including urinary tract infection, pneumonia, viral syndrome. Patient without any focal neurodeficits no photophobia no meningeal Patient data External records reviewed:: [facility] previous records and EMS form Clinical information provided by:: patient and EMS Social determinants that could affect healthcare access:: none Patient has the following chronic illnesses:: CVA, hypertension, diabetes, hyperlipidemia How is presenting disease/condition affected by chronic disease/condition?: exacerbated by Evaluation data The following diagnostics were reviewed and interpreted by me:: lab results, radiology exam(s) and EKG tracing(s) Lab and/or radiology exams considered but not ordered:: None Medications / Prescriptions Medications or Prescriptions considered but not ordered:: None Medication administrations:: Medication Administration History Discontinued Medications Sodium Chloride (Ns) 1,000 mls @ 999 mls/hr IV .Q1H1M ONE Stop: 09/26/25 10:17 Last Infusion: 09/26/25 11:00 Dose: Infused Documented By: Admin: 09/26/25 09:28 Dose: 999 mls/hr Documented By: BY Ceftriaxone Sodium/Dextrose (Rocephin/D5w 1gm Iv Premix) 1 gm in 50 mls @ 100 mls/hr IV STAT STA Stop: 09/26/25 10:46 Last Infusion: 09/26/25 11:05 Dose: Infused Documented By: Admin: 09/26/25 10:24 Dose: 100 mls/hr Documented By: BY See above Discharge Plan Prescriptions/Referrals Prescriptions/Med Rec: No Action pioglitazone 15 mg Tablet 15 mg PO QDAY pravastatin 40 mg Tablet 40 mg PO QDAY ferrous sulfate 325 mg (65 mg iron) Tablet 325 mg PO QDAY metformin 1,000 mg Tablet 500 mg PO BID lisinopril 10 mg Tablet 10 mg PO QDAY pantoprazole 40 mg tablet,delayed release (DR/EC) 40 mg PO QAM atorvastatin [Lipitor] 40 mg tablet 40 mg PO QPM Referrals: Taras Green MD [Primary Care Provider, Family Practice] - In 1 week Patient/Caregiver Discharge Instructions Print Language: Kazakh
--- NOTE | 2025-09-26 08:56 | EKG_ITS ---
[facility] Test Date: 2025-09-26 Pat Name: ALDAIR NEWSOME Department: Room: - Gender: Female [employer] P[employer]: : 1950 Requested By: Tavia Brown Order Number: [id number] Reading MD: Tavia Brown Measurements Intervals [place] Rate: 74 P: 62 IL: 176 QRS: 44 QRSD: 81 T: 77 QT: 345 QTc: 383 Interpretive Statements SINUS RHYTHM SEPTAL MYOCARDIAL INFARCTION , PROBABLY OLD [40+ ms Q WAVE IN V1/V2] MODERATE T-WAVE ABNORMALITY, CONSIDER ANTERIOR ISCHEMIA [-0.1+ mV T-WAVE IN V3/V4] Compared to ECG 08/20/2025 19:49:25 Myocardial infarct finding now present T-wave abnormality now present Possible ischemia now present /store/S0/[id number].pdf
--- NOTE | 2025-09-26 09:00 | XR_ITS ---
EXAMINATION: XR chest 1V SEPSIS PROTOCOL ORDERING PROVIDER: Tavia Pollard MD HISTORY: Sepsis protocol TECHNIQUE: Single portable AP radiograph of the chest. COMPARISON: 08/20/2025, chest radiographs. FINDINGS: Lines and Tubes: Overlying monitoring leads. Lungs: No mass. No consolidation. Pleura: No pneumothorax or pleural effusion. Cardiomediastinal Silhouette: Normal size cardiac silhouette. Calcifications aortic arch. Soft Tissues/Bones: Osteopenia. IMPRESSION: No acute pulmonary findings.
[2025-09-26 09:21] LABS: Lactate (Lactic Acid) 1.9 mMol/L (0.4-2.0)
[2025-09-26 09:22] LABS: Basophils # (Auto) 0.0 Thou/mm3 (0.0-0.2); Basophils % (Auto) 0 % (0-2.5); Eosinophils # (Auto) 0.0 Thou/mm3 (0.0-0.5); Eosinophils % (Auto) 0 % (0-10); Hematocrit 28.6 % (36.0-46.0); Hemoglobin 9.3 g/dL (12.0-16.0); Immature Granulocytes Auto 0.05 Thou/mm3 (0.00-0.00); Lymphocytes # (Auto) 1.1 Thou/mm3 (1.0-4.8); Lymphocytes % (Auto) 12 % (10-50); Mean Corpuscular HGB Conc 32.5 g/dl (31.0-37.0); Mean Corpuscular Hemoglobin 28.5 pg (25.0-35.0); Mean Corpuscular Volume 88 fL (80-100); Monocytes # (Auto) 1.0 Thou/mm3 (0.0-0.8); Monocytes % (Auto) 10 % (0-12); Neutrophils # (Auto) 7.5 Thou/mm3 (1.8-7.7); Neutrophils % (Auto) 77 % (37-80); Nucleated Red Blood Cell # 0.00 Thou/mm3 (0.00-0.00); Nucleated Red Blood Cell % 0 /100 WBC (0); Platelet Count 435 Thou/mm3 (140-440); RDW Standard Deviation 49.3 fL (36.4-46.3); Red Blood Count 3.26 Miln/mm3 (4.00-5.20); White Blood Count 9.7 Thou/mm3 (3.6-11.0)
[2025-09-26] MEDS: SODIUM CHLORIDE 0.9% 1000 ML 1,000 ML 999 ML IV (09:28)
[2025-09-26 09:35] LABS: Collection Type, Urine Clean Catch; Squamous Epithelial Cell,Urine 0 /hpf (0-5)
[2025-09-26 09:39] LABS: INR 0.9 (0.9-1.3); Prothrombin Time 9.8 Seconds (9.0-12.2)
[2025-09-26 09:49] LABS: Bacteria,Urine 1+; Bilirubin,Urine Negative (Negative); Blood,Urine Negative (Negative); Color,Urine Lt-Yellow (Lt Yel-Yel); Glucose, Urine Negative (Negative); Ketones,Urine Negative (Negative); Leukocyte Esterase,Urine Positive (Negative); Nitrite,Urine Positive (Negative); PH,Urine 6.5 (5.0-7.0); Protein,Urine Trace (Neg - Trace); RBC,Urine 1 /hpf (0-3); Specific Gravity,Urine 1.012 (1.001-1.035); Urobilinogen,Urine Negative mg/dL (0.0-1.0); WBC,Urine 116 /hpf (0-5)
[2025-09-26 09:53] LABS: Alanine Aminotransferase < 7 U/L (10-49); Albumin, Serum 4.5 gm/dL (3.4-4.8); Albumin/Globulin Ratio 1.8 (1.2-2.2); Alkaline Phosphatase 93 U/L (46-116); Anion Gap 12 (7-16); Aspartate Amino Transferase 15 U/L (0-34); BUN/Creatinine Ratio 15 Ratio (12-20); Bilirubin,Total 0.2 mg/dL (0.3-1.2); Blood Urea Nitrogen 17 mg/dL (9-23); Calcium 10.1 mg/dL (8.3-10.6); Calcium (Corrected) 10.1 mg/dL (8.5-10.1); Carbon Dioxide 25.1 mMol/L (20.0-31.0); Chloride 100 mMol/L (98-107); Creatinine (Component) 1.1 mg/dL (0.6-1.3); Estimated Creatinine Clearance 38.7 mL/min (>60); Globulin 2.5 gm/dL (2.3-3.5); Glucose 171 mg/dL (74-106); Lipase 37 U/L (12-53); Osmolality,Calculated 279 (275-295); Potassium 4.5 mMol/L (3.4-5.1); Procalcitonin 0.31 ng/ml (0.0-0.49); Sodium 137 mMol/L (136-145); Total Protein 7.0 gm/dL (5.7-8.2); Troponin I < 0.020 ng/mL (0.0-0.045); eGFR 53 See Note
[2025-09-26 10:09] LABS: Clarity,Urine Hazy (Clear/Hazy); Culture Indicated,Urine Yes
--- NOTE | 2025-09-26 10:17 | XR_ITS ---
Examination: Abdomen sonogram, Limited Date and time of exam: September 26, 2025, 1109 hours INDICATIONS: Right upper abdominal pain beginning 2 days ago. Technique: Real-time monroy scale transabdominal sonographic images of the upper abdomen obtained. Findings: Normal gallbladder Normal common bile duct 0.4 cm Pancreatic head 2.1 cm Liver 15.6 cm fatty infiltration Normal hepatopetal portal venous flow Patent IVC IMPRESSION: Normal gallbladder
[2025-09-26] MEDS: cefTRIAXone/D5w 1gm IV premix 1 GM/50 ML BAG IV (10:24)
[2025-09-26 10:38] LABS: COVID-19 Antigen (In-House) Negative (Negative)
--- NOTE | 2025-09-26 14:34 | PD.EDWEAK ---
ED Weakness RME/HPI General Chief complaint: Altered Mental Status Stated complaint: AMS Time Seen by Provider: 09/26/25 08:51 Arrival date/time: 09/26/25 08:41 RME / HPI RME / HPI Narrative: 75 year old female with history of CVA, hypertension, diabetes, hyperlipidemia presents to the ED BIBA from home for evaluation of altered mental status today. Per medics, granddaughter reported the patient had appeared more confused this morning though at baseline is lethargic and globally weak. G-FAST 0 on scene. Per medics, patient was noted to be clammy and warm to touch. In the ED, patient complains of feeling unwell. Reports left-sided chest pain, right upper abdominal pain, and diarrhea. States the abdominal pain began several days ago with no known modifying factors at home. Patient denies any unilateral weakness, loss of sensation/movement, facial numbness, falls or trauma. Denies dizziness. Denies fevers or urinary symptoms. In the ED, BG 182. Related Data Home Medications ?Medication ?Instructions ?Recorded ?Confirmed ferrous sulfate 325 mg (65 mg 325 mg PO QDAY 08/11/22 09/26/25 iron) tablet Held on 09/26/25. Instructions: Doctor's Order lisinopril 10 mg tablet 10 mg PO QDAY 08/11/22 09/26/25 metformin 1,000 mg tablet 500 mg PO BID 08/11/22 09/26/25 pioglitazone 15 mg tablet 15 mg PO QDAY 08/11/22 09/26/25 Held on 09/26/25. Instructions: Doctor's Order pravastatin 40 mg tablet 40 mg PO QDAY 08/11/22 09/26/25 Held on 09/26/25. Instructions: Doctor's Order atorvastatin 40 mg tablet (Lipitor) 40 mg PO QPM 09/26/25 09/26/25 pantoprazole 40 mg tablet,delayed 40 mg PO QAM 09/26/25 09/26/25 release Previous Rx's ?Medication ?Instructions ?Recorded ciprofloxacin HCl 500 mg tablet 500 mg PO Q12H #20 tabs 09/26/25 (Cipro) Allergies Allergy/AdvReac Type Severity Reaction Status Date / Time cat dander Allergy Verified 09/26/25 08:51 Course Quality Measures none Orders Category Date Time Status Bedside Blood Glucose NOW Care 09/26/25 09:00 Completed Equipment Operator Wage Hand Q4H START 00 Care 09/26/25 09:00 Completed EKG (ED ONLY) *Do not use* NOW Care 09/26/25 08:57 Completed In and Out Catheter X1 Care 09/26/25 08:57 Completed Insert IV NOW Care 09/26/25 09:00 Completed Strict Intake and Output Routine Care 09/26/25 09:[address] head/brain wo con Stat Exams 09/26/25 14:41 Completed EKG (ED Only) Stat Exams 09/26/25 08:56 Draft US abdomen limited Stat Exams 09/26/25 10:17 Completed XR chest 1V SEPSIS PROTOCOL Stat Exams 09/26/25 09:00 Completed Blood Culture (Lab) Stat Lab 09/26/25 09:10 Completed CBC Stat Lab 09/26/25 09:10 Completed CMP [Comprehensive Metabolic Panel] Stat Lab 09/26/25 09:10 Completed COVID-19 Antigen (In-House) Stat Lab 09/26/25 10:15 Completed Lactate (Lactic Acid) Stat Lab 09/26/25 09:10 Completed Lipase Stat Lab 09/26/25 09:10 Completed Procalcitonin Stat Lab 09/26/25 09:10 Completed Prothrombin Time with INR Stat Lab 09/26/25 09:10 Completed Troponin I Stat Lab 09/26/25 09:10 Completed UA, C/S IF [Urinalysis, C/S if Indicated] Stat Lab 09/26/25 09:20 Completed Urine Culture Stat Lab 09/26/25 09:20 Completed Acetaminophen Tab [Tylenol Tab] Med 09/26/25 14:46 Discontinued 650 mg PO X1 ONE Sodium Chloride 0.9% 1000 ml [Ns] 1,000 ml Med 09/26/25 09:17 Discontinued IV 999 mls/hr cefTRIAXone/D5w 1gm IV premix [Rocephin/D5w 1gm IV Med 09/26/25 10:17 Discontinued premix] 1 gm in 50 ml IV STAT Oxygen Delivery NOW RT 09/26/25 09:00 Completed Vital Signs Vital signs: Vital Signs Temperature 101.4 F H 09/26/25 08:53 Pulse Rate 74 09/26/25 08:53 Respiratory Rate 19 09/26/25 08:53 Blood Pressure 146/88 H 09/26/25 08:53 Pulse Oximetry (%) 90 L 09/26/25 08:53 Oxygen Delivery Method Room Air 09/26/25 08:53 Weakness [facility] Narrative [facility] Narrative:: Patient is a 75-year-old female is in the emerged from with concerns for weakness. Vital signs and exam as listed. Concern for any tract infection, pneumonia, among others. Ordered labs EKG chest x-ray. Labs without leukocytosis, hemoglobin 9.3. This is at patient's baseline, patient without any acute electrolyte abnormalities, GFR 53, no transaminitis troponin not elevated procalcitonin not elevated urinalysis positive for nitrites positive for leuk esterase and 116 white blood cells. Patient was complaining of mild right upper quadrant discomfort. Provided patient with a ultrasound, did not identify any acute abnormalities. Patient without any transaminitis. Antibiotics provided for urinary tract infection. Fluids provided. 2:44p Updated patient and her granddaughter at bedside. Grand daughter stated that patient was complaining of a headache at home and in the past when she has had brain bleeds she has presented the way she did today. I let her know that I would have her head CT. I let her know that when the patient arrived, the patient was not complaining of headache or dizziness, but she did not have any focal neurodeficits and for that reason she is not activated as a stroke alert. Patient now states that she is having a mild headache not the worst headache of her life. Will provide medication for symptom relief and expedite CT CT brain unremarkeable. On re-eval patient feels better. Will dc to home with close return precautions and follow up with pcp. Abx for uti provided. Patient data External records reviewed:: [facility] previous records Clinical information provided by:: patient and EMS Social determinants that could affect healthcare access:: none Patient has the following chronic illnesses:: see mdm How is presenting disease/condition affected by chronic disease/condition?: exacerbated by Evaluation data The following diagnostics were reviewed and interpreted by me:: lab results and radiology exam(s) Lab and/or radiology exams considered but not ordered:: none Interpretation Summary: see mdm Medications / Prescriptions Medications or Prescriptions considered but not ordered:: non e Medication administrations:: Medication Administration History Discontinued Medications Acetaminophen (Acetaminophen 325 Mg Tablet) 650 mg PO X1 ONE Stop: 09/26/25 14:47 Last Admin: 09/26/25 15:05 Dose: 650 mg Documented By: BY Sodium Chloride (Ns) 1,000 mls @ 999 mls/hr IV .Q1H1M ONE Stop: 09/26/25 10:17 Last Infusion: 09/26/25 11:00 Dose: Infused Documented By: Admin: 09/26/25 09:28 Dose: 999 mls/hr Documented By: BY Ceftriaxone Sodium/Dextrose (Rocephin/D5w 1gm Iv Premix) 1 gm in 50 mls @ 100 mls/hr IV STAT STA Stop: 09/26/25 10:46 Last Infusion: 09/26/25 11:05 Dose: Infused Documented By: Admin: 09/26/25 10:24 Dose: 100 mls/hr Documented By: BY see above Consultations Consultation(s) initiated? (list below): No Diagnosis Weakness Differential Diagnosis: other (see mdm ) Most likely diagnosis given after review of the tests above:: see mdm Admission Indicated Admission indicated?: not indicated Admission Request Was there a request for admission?: No Disposition Plan Disposition Plan: Discharge Discharge Attestation Discharge Attestation: The patient and all family members were given an opportunity to ask questions and understood the discharge instructions. Discharge instructions specifically effects, indications for sooner follow up or return to the emergency department, and the expected course of current diagnosis. Patient condition: Stable Discharge Plan Plan Patient Disposition: HOME (Self Care) Prescriptions/Referrals Prescriptions/Med Rec: New ciprofloxacin HCl [Cipro] 500 mg tablet 500 mg PO Q12H Qty: 20 0RF No Action pioglitazone 15 mg Tablet 15 mg PO QDAY pravastatin 40 mg Tablet 40 mg PO QDAY ferrous sulfate 325 mg (65 mg iron) Tablet 325 mg PO QDAY metformin 1,000 mg Tablet 500 mg PO BID lisinopril 10 mg Tablet 10 mg PO QDAY pantoprazole 40 mg tablet,delayed release (DR/EC) 40 mg PO QAM atorvastatin [Lipitor] 40 mg tablet 40 mg PO QPM Referrals: Taras Green MD [Primary Care Provider, Family Practice] - In 1 week Problem List Clinical Impression: Weakness, Urinary tract infection, Acute pyelonephritis Patient/Caregiver Discharge Instructions Education Materials: ED Pyelonephritis, Female (Adult) Additional Instructions: I am glad that you are feeling better. The CT scan of your brain did not show any acute hemorrhage. Your prior hemorrhage has since resolved. Your labs were reassuring, did not have any acute hematologic or significant metabolic abnormality. Your urine does appear to be infected. We have proven you antibiotics here, or send you home with a 10-day course of antibiotics to treat your kidney infection. Please follow-up with your primary doctor within 1 to 2 days, hydrate well. Return immediately for worsening symptoms or new symptoms of concern. Print Language: Bahamian Stand Alone Forms: [employer] Award Info., Patient Portal Info Letter
--- NOTE | 2025-09-26 14:41 | XR_ITS ---
Examination: CT brain head without contrast. 2-D sagittal coronal reconstructions Date and time of exam: September 26, 2025, 1524 hours INDICATIONS: Altered mental status today, history hemorrhage acute in the left occipital lobe on CT brain scan August 20, 2025 CTDI: vol (mGy): 49.4 DLP: (mGycm): 941 Technique: Multiple CT axial sections of the brain have been obtained, 5 mm slice thickness. Contrast has not been administered. 2-D sagittal, coronal reconstructions have been obtained Low dose protocols were performed. One or more of the following dose reduction techniques were used; automated exposure control, adjustment of the mA and/or KV according to patient size, use of iterative reconstruction technique. Findings: No significant ventricular enlargement. Hemorrhage in the left occipital lobe has resolved with minimal residual edema Cerebral calcifications again noted Intra-axial or extra-axial hemorrhage density is not seen. No mass effect or midline shift Basal cisterns are not remarkable. Fourth ventricle is midline. Cranial vault intact. Impression: Hemorrhage in the left occipital lobe has resolved with minimal residual edema No new areas of hemorrhage
[2025-09-26] MEDS: ACETAMINOPHEN 325 MG TABLET 650 MG PO (15:05)
== END 2025-09-26 17:34 | disposition home or self-care (01) ==
PROVIDERS: Emergency Provider Emergency Medicine; PCP Family Medicine
DX: N10 Acute pyelonephritis (principal); R41.82 Altered mental status, unspecified; R53.1 Weakness; R10.11 Right upper quadrant pain; R94.31 Abnormal electrocardiogram [ECG] [EKG]; I10 Essential (primary) hypertension; E11.9 Type 2 diabetes mellitus without complications; Z79.84 Long term (current) use of oral hypoglycemic drugs
CPT/HCPCS: 36415; 51701; 70450; 71045; 76705; 80053; 81001; 83605; 83690; 84145; 84484; 85025; 85610; 87040; 87077; 87086; 87186; 87811; 93005; 96361; 96365; 99285; J0696; J7030; A9270